=== PATIENT | female | born 1965 | race Caucasian/White ===

== ENCOUNTER 2017-08-05 06:28 | Day surgery (SDC) | payer BC ==
[~2017-08-05 06:28] MED LIST: Buffered Lidocaine 0.9% SYRIN* 5 ML/SYR SYRINGE INTRADERM ONE
[2017-08-05] MEDS ORDERED: ceFAZolin 2 GM PREMIX (*) 50 ML IVPB ONE (06:42)
[2017-08-05] MEDS ORDERED: Midazolam* 1 MG/ML 2 ML VIAL (2 MG) ONE ×4 (07:27→08:13)
[2017-08-05] MEDS ORDERED: fentaNYL* 50 MCG/ML 2 ML VIAL (100 MCG VIAL) ONE (07:27)
[2017-08-05] MEDS ORDERED: Propofol* 10 MG/ML 20 ML BTL IV PUSH ONE ×2 (07:28→08:19)
[2017-08-05] MEDS ORDERED: Bupivacaine 0.25% SDV* 30 ML ONE (07:28)
[2017-08-05] MEDS ORDERED: Lidocaine 1.5% EPI 1:200,000* 30 ML SDV ONE (07:28)
[2017-08-05] MEDS ORDERED: Lidocaine 1% MPF wEPI 200,000* 30 ML SDV ONE (07:40)
[2017-08-05 09:25] VITALS: BP 112/66
== END 2017-08-05 09:22 | disposition home or self-care (01) ==
LOC: OREAST 06:28
PROVIDERS: ATTEND Plastic Surgery
DX: L72.8 Other follicular cysts of the skin and subcutaneous tissue (principal); E03.9 Hypothyroidism, unspecified; Z85.828 Personal history of other malignant neoplasm of skin; F17.210 Nicotine dependence, cigarettes, uncomplicated
CPT/HCPCS: 88304; J0690; J2001; J2250; J2704; J3010